=== PATIENT | female | born 1965 | race Caucasian/White ===

== ENCOUNTER 2022-02-16 08:02 | Observation (INO) ==
[2022-02-16] MEDS ORDERED: CeFAZolin Syr 3,000MG/30 ML 3,000 MG/30 ML SYRINGE IVPB ONE (08:28)
[2022-02-16] MEDS ORDERED: Ringers Solution, Lactated 1,000 ML IVC SCH ×2 (08:30→16:45)
[2022-02-16] MEDS ORDERED: Acetaminophen IV 1,000 MG/100 ML BAG IVPB ONE (10:23)
[2022-02-16] MEDS ORDERED: Famotidine 20 MG/2 ML VIAL IVP ONE (10:23)
[2022-02-16] MEDS ORDERED: diazePAM 5 MG TABLET PO ONE (10:23)
[2022-02-16] MEDS ORDERED: Lidocaine HCL 4 ML Topical Solution (Laryng-O-Jet Kit Sterile Pak) TP ONE (10:52)
[2022-02-16] MEDS ORDERED: *HR* Midazolam HCl 2 MG/2 ML VIAL ONE (10:52)
[2022-02-16] MEDS ORDERED: *HR* Succinylcholine 200 MG/10 ML VIAL IVP ONE (10:52)
[2022-02-16] MEDS ORDERED: Lidocaine -MPF 2% 5 ML VIAL ONE (10:52)
[2022-02-16] MEDS ORDERED: Ketorolac 30 MG/ML VIAL ONE (10:52)
[2022-02-16] MEDS ORDERED: *HR* FentaNYL (PF) 100 MCG/2 ML VIAL ONE ×2 (10:52→12:07)
[2022-02-16] MEDS ORDERED: *HR* Propofol 200 MG/20 ML VIAL IVP ONE ×2 (10:53)
[2022-02-16] MEDS ORDERED: Lidocaine/EPI 1:100k 1% 20 ML VIAL ONE (10:54)
[2022-02-16] MEDS ORDERED: *HR* OxyCODONE Immed Rel 5 MG TABLET PO ONE (12:58)
[2022-02-16] MEDS ORDERED: Naloxone 0.4 MG/ML INJ IVP PRN ×2 (13:41→16:45)
[2022-02-16] MEDS ORDERED: *HR* HYDROcodone/Acet 5/325 mg TABLET PO PRN (13:41)
[2022-02-16] MEDS ORDERED: Acetaminophen 325 MG TABLET PO PRN ×2 (13:41→16:45)
[2022-02-16] MEDS ORDERED: Ondansetron ODT 4 MG TAB.RAPDIS SL PRN ×2 (13:41→16:45)
[2022-02-16] MEDS ORDERED: *HR* OxyCODONE Immed Rel 5 MG TABLET PO PRN (13:41)
[2022-02-16] MEDS ORDERED: Dulaglutide [Trulicity] 0.75 MG/0.5 ML Pen.Injctr SUBQ SCH (17:15)
[2022-02-16] MEDS: *HR* HYDROcodone/Acet 5/325 mg TABLET PO PRN (18:40)
[2022-02-16] MEDS: *HR* OxyCODONE Immed Rel 5 MG TABLET PO PRN (19:38)
[2022-02-16] MEDS: BuPROPion SR (12 HR) 100 MG TABLET PO SCH (22:42)
[2022-02-16] MEDS ORDERED: Melatonin 3 MG TABLET PO SCH (22:45)
[2022-02-17] MEDS: *HR* HYDROcodone/Acet 5/325 mg TABLET PO PRN ×2 (00:54→08:07)
[2022-02-17] MEDS: *HR* OxyCODONE Immed Rel 5 MG TABLET PO PRN ×2 (03:44→11:20)
[2022-02-17 07:28] VITALS: BP 108/62; PULSE 91; TEMP 98.5; O2SAT 95
[2022-02-17] MEDS: BuPROPion SR (12 HR) 100 MG TABLET PO SCH (07:46)
[2022-02-17] MEDS ORDERED: Cyanocobalamin (B-12) 1,000 MCG TABLET PO SCH (09:00)
[2022-02-17] MEDS ORDERED: Lactobacillus 1 EACH CAP.SPRINK PO SCH (09:00)
[2022-02-17] MEDS ORDERED: Verapamil ER (24 HR) 240 MG TABLET.ER PO SCH (09:00)
== END 2022-02-17 12:02 | disposition home or self-care (01) ==
LOC: SDCAOSI 08:02 → 4WAOSI 08:02
PROVIDERS: ADMIT Orthopaedic Surgery Hand Surgery; ATTEND Orthopaedic Surgery Hand Surgery